=== PATIENT | male | born 1950 | race Native Hawaiian/Other Pacific Islander ===

== ENCOUNTER 2019-01-03 21:32 | Emergency (ER) | payer OTHER ==
[2019-01-03 21:44] VITALS: BP 145/70
[2019-01-03 22:10] LABS: BASO % 0.4 % (0.0-1.0); EOS # 0.3 10^3/uL (0.0-0.50); EOS % 4.1 % (0.0-3.0); HEMATOCRIT 29.2 % (42.0-52.0); LYMPH # 1.3 10^3/uL (1.5-4.5); LYMPH % 18.6 % (24.0-44.0); MEAN CORPUSCULAR HEMOGLOBIN 30.8 pg (27.0-33.0); MEAN CORPUSCULAR HGB CONC 34.2 g/dl (32.0-36.5); MEAN CORPUSCULAR VOLUME 89.8 fl (80.0-96.0); MONO # 0.8 10^3/uL (0.0-0.8); MONO % 11.7 % (0.0-5.0); NEUTROPHILS # 4.4 10^3/uL (1.8-7.7); NEUTROPHILS % 64.8 % (36.0-66.0); PLATELET COUNT, AUTOMATED 115 10^3/uL (150-450); RED BLOOD COUNT 3.25 10^6/uL (4.30-6.10); WHITE BLOOD COUNT 6.8 10^3/uL (4.0-10.0)
[2019-01-03] MEDS ORDERED: ACETAMINOPHEN TAB 650MG DOSE (2X325MG) PO ONE (22:30)
[2019-01-03 22:48] LABS: INR 0.97
[2019-01-03 22:49] LABS: PARTIAL THROMBOPLASTIN TIME 36.2 SECONDS (25.4-37.6)
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
[2019-01-03] MEDS ORDERED: MORPHINE 2 MG/ML 1ML SYRINGE (J2270) As Ordered ONE (23:44)
[2019-01-03] MEDS ORDERED: MORPHINE 2 MG/ML 1ML SYRINGE (J2270) IV ONE (23:45)
[2019-01-04 00:11] LABS: CALCIUM LEVEL 9.2 MG/DL (8.8-10.2); CREATININE FOR GFR 13.5 MG/DL (0.70-1.30); GLOMERULAR FILTRATION RATE 3.9 (>49); MB/CK RELATIVE INDEX 2.95 (< OR =4); POTASSIUM SERUM 6.5 MEQ/L (3.5-5.1); TROPONIN I 0.08 NG/ML (< 0.10)
--- NOTE | 2019-01-04 13:30 | ECGEPIP ---
Stationary ECG Study [facility] - ED Test Date: 2019-01-03 Pat Name: RUTHIE SMYTH Department: Room: - Gender: M [employer] Worker: jeanne : 1950 Requested By: GINNY Martínez Order Number: [id number] Reading MD: Yenni Polanco Measurements Intervals [place] Rate: 60 P: 140 IN: 221 QRS: -38 QRSD: 89 T: 131 QT: 435 QTc: 435 Interpretive Statements ELECTRONIC ATRIAL PACEMAKER MARKED LEFT AXIS DEVIATION NSTTW ABNORMALITY POSSIBLE RIGHT VENTRICULAR CONDUCTION DELAY INFERIOR MYOCARDIAL INFARCTION, PROBABLY OLD NO PRIOR FOR COMPARISON Electronically Signed On 01-04-2019 13:30:26 EDT by Yenni Polanco
== END 2019-01-04 00:24 | disposition short-term general hospital (02) ==
LOC: EDAGE 21:32 → EDBD 21:32 → M ED 21:32
DX: S22.41XA Multiple fractures of ribs, right side, initial encounter for closed fracture (principal); V40.5XXA Car driver injured in collision with pedestrian or animal in traffic accident, initial encounter; Y92.410 Unspecified street and highway as the place of occurrence of the external cause; J94.2 Hemothorax; I44.0 Atrioventricular block, first degree; N18.6 End stage renal disease; Z99.2 Dependence on renal dialysis; Z79.01 Long term (current) use of anticoagulants
CPT/HCPCS: 70450; 71250; 74176; 80048; 82550; 82553; 84484; 85025; 85610; 85730; 93005; 93041; 94760; 96374; 99285; J2270